=== PATIENT | male | born 1960 | race Caucasian/White ===

== ENCOUNTER 2017-01-08 20:39 | Emergency (ER) | payer SELFPAY ==
[2017-01-08 21:46] VITALS: BP 119/75
--- NOTE | 2017-01-08 22:44 | UC ---
Back Pain HPI - HPI Summary HPI Summary: 3 DAYS AGO WAS LIFTING A HITCH TO [employer] HIS [employer] AND SINCE THEN HAS HAD SHARP SHOOTING PAIN IN RIGHT BUTTOCK THAT RADIATES DOWN BACK OF LEG TO KNEE. IS HAVING TO USE A CANE TO WALK DUE TO THE PAIN. HAS HAD THIS SEVERAL TIMES IN THE PAST. LAST TIME IN 2014. TORADOL WORKS WELL FOR HIM. DENIES NUMBNESS/TINGLING. NO SADDLE ANESTHESIA. - History of Current Complaint Chief Complaint: UCLowerExtremity Stated Complaint: POSS SCIATICA PAIN Time Seen by Provider: 01/08/17 22:38 Hx Obtained From: Patient Onset/Duration: Sudden Onset Timing: Constant Severity Initially: Moderate Severity Currently: Moderate Pain Intensity: 8 Pain Scale Used: 0-10 Numeric Back Pain: Is Discrete @ - RIGHT BUTTOCK RADIATING DOWN LEG Character: Sharp Aggravating: Movement, Walking Alleviating: Rest Associated Signs And Symptoms: Positive: Redness, Pain with Weight Bearing - Allergies/Home Medications Allergies/Adverse Reactions: Allergies Allergy/AdvReac Type Severity Reaction Status Date / Time No Known Allergies Allergy Verified 05/18/15 19:29 PMH/Surg Hx/FS Hx/Imm Hx Previously Healthy: Yes Endocrine History Of: Denies: Diabetes Cardiovascular History Of: Denies: Cardiac Disorders Respiratory History Of: Denies: Asthma - Surgical History Surgical History: None - Family History Known Family History: Negative: Hypertension - Social History Alcohol Use: Rare Substance Use Type: None Smoking Status (MU): Never Smoked Tobacco Review of Systems Constitutional: Negative Respiratory: Negative Cardiovascular: Negative Gastrointestinal: Negative Musculoskeletal: Decreased ROM, Myalgia All Other Systems Reviewed And Are Negative: Yes Physical Exam Triage Information Reviewed: Yes Appearance: Well-Appearing, Well-Nourished, Pain Distress - MILD Vital Signs: Initial Vital Signs Temp 98.1 F 01/08/17 21:38 Pulse 69 01/08/17 21:38 Resp 16 01/08/17 21:38 BP 119/75 01/08/17 21:38 Pulse Ox 100 01/08/17 21:38 Vital Signs Reviewed: Yes Eyes: Positive: Conjunctiva Clear ENT: Positive: Hearing grossly normal Neck: Positive: Supple Respiratory: Positive: No respiratory distress, No accessory muscle use Cardiovascular: Positive: Pulses Normal Abdomen Description: Positive: Soft Musculoskeletal: Positive: No Edema, ROM Limited @ - RIGHT LEG/HIP Neurological: Positive: Alert, Other: - POS STRIGHT LEG ON RIGHT Psychological: Positive: Age Appropriate Behavior Skin: Negative: rashes Back Pain Course/Dx - Differential Dx/Diagnosis Provider Diagnoses: SCIATICA - RIGHT SIDE Discharge - Discharge Plan Condition: Stable Disposition: HOME Prescriptions: Cyclobenzaprine TAB* [Flexeril TAB*] 10 mg PO BID PRN #30 tab PRN Reason: Pain Hydrocodone-Acetaminophen [Lorcet 5-325 mg] 1 tab PO QID PRN #20 tab MDD 4 PRN Reason: Pain Patient Education Materials: Sciatica (ED) Referrals: Stanford Murry MD [Primary Care Provider] - If Needed Additional Instructions: YOU RECEIVED AN INJECTION OF TORADOL TODAY. RX FOR FLEXERIL AND VICODIN TO USE NEEDED. REST, STRETCH, USE HEAT. SEEK FOLLOW-UP IF YOU ARE NOT IMPROVING EXPECTED.
[2017-01-08] MEDS ORDERED: Ketorolac INJ* 60 MG/2 ML VIAL IM ONE (22:46)
[2017-01-08] MEDS ORDERED: Cyclobenzaprine TAB* 10 MG PO ONE (22:46)
== END 2017-01-08 23:17 | disposition home or self-care (01) ==
LOC: UCEAST 20:39
DX: M54.31 Sciatica, right side (principal)
CPT/HCPCS: 96372; 99212; A9270-GY; G0463; J1885

== ENCOUNTER 2018-03-24 11:49 | Emergency (ER) | payer BC ==
--- NOTE | 2018-03-24 14:45 | UC ---
UC General HPI - HPI Summary HPI Summary: pt presents c/o pain in his L side-he is holding and pointing to his L flank and L side of his abdomen. he has had the pain for 2-3 weeks. he is taking 600mg of IB every 6 hours with no relief. the pain at times is severe and goes into his L testicle but not now. he did have n/v once yesterday. he denies any diarrhea, urinary s/s's and hx of injury. he has no pain spine. he can not specifically make it any better or worse. 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 Negative: Diarrhea, Dysuria, Fever - Allergy/Home Medications Allergies/Adverse Reactions: Allergies Allergy/AdvReac Type Severity Reaction Status Date / Time No Known Allergies Allergy Verified 03/24/18 13:30 PMH/Surg Hx/FS Hx/Imm Hx Previously Healthy: Yes - Surgical History Surgical History: Yes Surgery Procedure, Year, and Place: Right shoulder dislocation - Family History Known Family History: Positive: Other - [place] Negative: Hypertension - Social History Occupation: Employed Full-time Lives: With Family Alcohol Use: Occasionally Substance Use Type: None Smoking Status (MU): Never Smoked Tobacco - Immunization History Vaccination Up to Date: Yes Review of Systems Constitutional: Negative Skin: Negative Eyes: Negative ENT: Negative Respiratory: Negative Cardiovascular: Negative Gastrointestinal: Abdominal Pain - L side/flank, Vomiting, Nausea Genitourinary: Negative Motor: Negative Neurovascular: Negative Musculoskeletal: Negative Neurological: Negative Psychological: Negative Is Patient Immunocompromised?: No All Other Systems Reviewed And Are Negative: Yes Physical Exam Triage Information Reviewed: Yes Appearance: Pain Distress Vital Signs: Initial Vital Signs Temp 98.2 F 03/24/18 13:18 Pulse 77 03/24/18 13:18 Resp 18 03/24/18 13:18 BP 130/81 03/24/18 13:18 Pulse Ox 99 03/24/18 13:18 Vital Signs Reviewed: Yes Eyes: Positive: Conjunctiva Clear ENT: Positive: Pharynx normal, TMs normal. Negative: Nasal congestion, Nasal drainage Neck: Positive: Supple, Nontender, No Lymphadenopathy Respiratory: Positive: Chest non-tender, Lungs clear, Normal breath sounds Cardiovascular: Positive: RRR, No Murmur Abdomen Description: Positive: Nontender, No Organomegaly, Soft. Negative: Bruit, CVA Tenderness (R), CVA Tenderness (L), Distended, Guarding Bowel Sounds: Positive: Present Musculoskeletal: Positive: Other: - Neck/back=non tender. full painless rom. 5/ 5 strength and 2+ reflexes x4 negative straight leg raises. Neurological: Positive: Alert Psychological: Positive: Normal Response To Family, Age Appropriate Behavior Skin Exam: Normal Skin: Negative: rashes Diagnostics - Laboratory Diagnostic Studies Completed/Ordered: U/A=3+ GLUCOSE Course/Dx - Course Course Of Treatment: [facility] CALLED. REPORT GIVEN TO ABIEL GUIDO NP. ADVISED OF WORSENING PAIN IN L FLANK/L SIDED ABDOMINAL PAIN X 3 WEEKS WITH OCC N/V AND RADIATION TO GROIN. TXING WITH IB WITHOUT RELIEF AND 3+ GLUCOSE IN URINE HERE. COMING VIA CAR. - Differential Dx - Multi-Symptom Differential Diagnoses: Other - RENAL COLIC/OBST, HEPATOBILIARY PATHOLOGY, PANCREATIC PATHOLOGY, BOWEL PATHOLOGY. UNLIKLEY MUSCULOSKELETAL. Provider Diagnoses: INTRACTABLE PAIN L FLANK/L SIDE OF ABDOMEN. 3+ GLUCOSE IN URINE. Discharge - Sign-Out/Discharge Documenting (check all that apply): Patient Departure - Discharge Plan Condition: Stable Disposition: TRANS HIGHER LVL OF CARE FAC Referrals: Stanford Murry MD [Primary Care Provider] - Additional Instructions: LEAVE HERE AND GO DIRECTLY TO THE [facility] DISCUSSED. - Billing Disposition and Condition Condition: STABLE Disposition: Trans Higher Lvl of Care Fac
[2018-03-24 14:54] VITALS: BP 127/85
== END 2018-03-24 14:52 | disposition short-term general hospital (02) ==
LOC: UCCORT 11:49
DX: R10.9 Unspecified abdominal pain (principal); R81 Glycosuria
CPT/HCPCS: 81003; 99212; G0463